=== PATIENT | male | born 1935 | race Caucasian/White ===

== ENCOUNTER → 2019-01-17 | Outpatient (CLI) | payer MEDICARE, OTHER ==
[~2019-01-17] MED LIST: ALLOPURINOL 30300 M1; AMLODIPINE BESYL5 MG; ASPIRIN EC81 M1; AVODART0.5 MG; CARDURA XL4 MG; COLACE100 MG; FISH OIL 1,0001 EAC8; LIPITOR40 MG; MIRALAX255 GM; NAPROSYN500 MG; NORCO 5-325 TA1 EACH; OMEPRAZOLE 20 M20 MG; PYRIDIUM200 MG; TAMSULOSIN HCL0.4 MG; VITAMIN D10000 UNIT
== END ==
LOC: M.RAD 14:05
DX: M16.11 Unilateral primary osteoarthritis, right hip (principal); M25.851 Other specified joint disorders, right hip; M47.816 Spondylosis without myelopathy or radiculopathy, lumbar region

== ENCOUNTER 2019-10-09 18:53 | Inpatient (IN) | payer MEDICARE, OTHER ==
[~2019-10-09] VITALS: Ht 180.3 cm; Wt 85.7 kg
[~2019-10-09 18:53] MED LIST changes: -ALLOPURINOL 30300 M1; +ALLOPURINOL 30300 M1 PO; -AMLODIPINE BESYL5 MG; -ASPIRIN EC81 M1; +ASPIRIN EC81 M1 PO; -COLACE100 MG; +COLACE100 MG PO; -LIPITOR40 MG; +LIPITOR40 MG PO; +NORVASC 2.5 MG2.5 M1 PO; +OMEPRAZOLE 20 M20 M1 PO; -OMEPRAZOLE 20 M20 MG
[2019-10-09 19:17] VITALS: BP 152/59
[2019-10-09] MEDS ORDERED: LISINOPRIL2.5 MG PO (19:26)
[2019-10-09] MEDS ORDERED: ISOSORBIDE DINI30 MG PO (19:27)
[2019-10-09] MEDS ORDERED: KAPSPARGO SPRIN25 MG PO (19:27)
[2019-10-09] MEDS ORDERED: NEURONTIN300 MG PO (19:28)
[2019-10-09 20:01] LABS: URINE BILIRUBIN NEGATIVE (Negative); URINE BLOOD NEGATIVE (Negative); URINE CLARITY CLEAR; URINE COLOR YELLOW; URINE GLUCOSE-RANDOM NEGATIVE (Negative); URINE KETONES NEGATIVE (Negative); URINE LEUKOCYTES-REFLEX NEGATIVE (Negative); URINE NITRITE-REFLEX NEGATIVE (Negative); URINE PROTEIN TRACE (Negative); URINE UROBILINOGEN 0.2 E.U./dl (0.2-1.0)
[2019-10-09 20:39] LABS: ABSOLUTE EOSINOPHILS 0.1 thou/uL (0.0-0.7); ABSOLUTE LYMPHOCYTES 0.8 thou/uL (0.8-5.3); ABSOLUTE MONOCYTES 0.6 thou/uL (0.0-1.2); ABSOLUTE NEUTROPHILS 4.8 thou/uL (1.6-8.1); BASOPHILS 0.4 %; EOSINOPHILS 2.2 %; HEMATOCRIT 32.9 % (42.0-52.0); HEMOGLOBIN 11.1 gm/dL (14.0-18.0); LYMPHOCYTES 12.6 %; MCH 30.3 pg (26.0-34.0); MCHC 33.9 g/dL (28.0-37.0); MCV 89.4 fL (80.0-100.0); MONOCYTES 10.1 %; MPV 8.7 fl. (7.2-11.1); NUCLEATED RBCS 0 /100WBC; PLATELET COUNT* 139 thou/uL (150-400); POLYS 74.7 %; RBC 3.68 mil/uL (4.50-6.00); RDW-CV 14.2 % (10.5-14.5); WBC 6.4 thou/uL (4.0-11.0)
[2019-10-09 20:48] LABS: CALCIUM 8.2 mg/dL (8.5-10.1); CREATININE 1.3 mg/dL (0.6-1.3); POTASSIUM 4.4 mmol/L (3.5-5.1)
[2019-10-09 20:49] LABS: INR 1.1; PROTIME 10.9 Seconds (9.20-11.50)
[2019-10-09 20:59] LABS: ALBUMIN 3.1 g/dL (3.4-5.0); TOTAL BILIRUBIN 0.3 mg/dL (<0.1-1.0); TOTAL PROTEIN 6.4 g/dL (6.4-8.2)
[2019-10-10 00:05] VITALS: BP 148/80
[2019-10-10 04:00] VITALS: BP 151/53
[2019-10-10 08:00] VITALS: BP 156/56
--- NOTE | 2019-10-10 08:24 | NUR ---
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 HE IS ABLE TO COMMUNIATE HIS NEEDS TO STAFF EFFECTIVELY. HE HAS REPORTED MINOR "PRESSURE, NOT REALLY PAIN" AND HAS DENIED THE NEED FOR ANY PAIN MEDICAION SINCE ADMISSION UP TILL NOW. PT AFIB ON ADMISSION WITH A CONTROLLED RATE. HE HAS BEEN NPO SINCE MIDNIGHT FOR A SURGICAL CONSULT TODAY.
--- NOTE | 2019-10-10 11:20 | NUR ---
Pt is A&O. Resides at home with . Normally active and independent. Pt uses a cane for mobility. No home o2. No hx of HH or SNF. Goal is home at ma, no needs anticipated. Following.
[2019-10-10 12:12] VITALS: BP 163/57
[2019-10-10 16:00] VITALS: BP 136/68
--- NOTE | 2019-10-10 16:28 | EKG ---
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: [place] : 1935 Requested By: Catalina Blank Order Number: [id number] MD: Héctor Carmona Measurements Intervals [place] Rate: 64 P: MS: QRS: -44 QRSD: 105 T: 69 QT: 421 QTc: 435 Interpretive Statements Atrial fibrillation Left anterior fascicular block Consider anterior infarct versus LAFB Nonspecific T abnormalities, lateral leads No previous ECG available for comparison Electronically Signed On 10-10-2019 16:27:14 CDT by Héctor Carmona [email or web address] <ELECTRONICALLY SIGNED> By: Héctor Carmona MD, FACC 10/10/19 1627 52 52 Héctor Carmona MD, [facility] /EPI
--- NOTE | 2019-10-10 16:34 | 2DMMODE ---
[place] [address] 2 D/M-MODE ECHOCARDIOGRAM Name: BELKYS DUARTE Room: [address] IN .R.#: [id number] Admission: 10/09/19 Attend Phys: Dayana Huff Discharge: Date of : 39 Date of Service: 10/10/19 1632 Report #: [id number] THIS REPORT FOR: cc: Brice Edwards John E. DO Holkins, John M. MD [facility] ~ APPROVED REPORT Study performed: 10/10/2019 13:34:03 EXAM: Comprehensive 2D, Doppler, and color-flow Echocardiogram Patient Location: In-Patient Room #: [facility] BSA: 2.07 HR: 84 bpm BP: 163/57 mmHg Rhythm: Atrial Fibrillation Other Information Study Quality: Good Indications Dyspnea 2D Dimensions IVSd: 11.65 (7-11mm) LVOT Diam: 20.26 (18-24mm) LVDd: 46.07 mm PWd: 11.90 (7-11mm) Ascending Ao: 26.57 (22-36mm) LVDs: 19.74 (25-40mm) Aortic Root: 25.25 mm Volumes Left Atrial Volume (Systole) LA ESV Index: 20.30 mL/m2 Aortic Valve AoV Peak Emmanuel.: 1.62 m/s AO Peak Gr.: 10.49 mmHg LVOT Max P.70 mmHg AO Mean Gr.: 5.45 mmHg LVOT Mean P.09 mmHg LVOT Max V: 1.29 m/s AO V2 VTI: 25.33 cm LVOT Mean V: 0.80 m/s ARETHA (VTI): 2.48 cm2 LVOT V1 VTI: 19.47 [place] [address] 2 D/M-MODE ECHOCARDIOGRAM Name: BELKYS DUARTE Room: [address] IN .R.#: [id number] Admission: 10/09/19 Attend Phys: Dayana Huff Discharge: Date of : 39 Date of Service: 10/10/19 1632 Report #: [id number] Mitral Valve E/A Ratio: 2.09 MV Decel. Time: 165.76 ms MV E Max Emmanuel.: 1.43 m/s MV PHT: 48.07 ms MVA (PHT): 4.58 cm2 TDI E/Lateral E': 10.21 E/Medial E': 11.92 Medial E' Emmanuel.: 0.12 m/s Lateral E' Emmanuel.: 0.14 m/s Pulmonary Valve PV Peak Emmanuel.: 0.97 m/s PV Peak Gr.: 3.79 mmHg Left Ventricle The left ventricle is normal size. There is normal LV segmental wall motion. There is normal left ventricular wall thickness. Left ventricular systolic function is normal. The left ventricular ejection fraction is within the normal range. LVEF is 55-60%. This study is not technically sufficient to allow evaluation of the LV diastolic function due to atrial fibrillation. Right Ventricle The right ventricle is normal size. The right ventricular systolic function is normal. Atria Left atrium is mildly dilated. The right atrium size is normal. Aortic Valve Mild aortic valve sclerosis. No aortic regurgitation is present. There is no aortic valvular stenosis. Mitral Valve The mitral valve is normal in structure. Mild mitral regurgitation. No evidence of mitral valve stenosis. Tricuspid Valve The tricuspid valve is normal in structure. There is no tricuspid valve regurgitation noted. Pulmonic Valve The pulmonary valve is normal in structure. Mild [place] [address] 2 D/M-MODE ECHOCARDIOGRAM Name: BELKYS DUARTE Room: [address] IN [facility]#: [id number] Admission: 10/09/19 Attend Phys: Dayana Huff Discharge: Date of : 39 Date of Service: 10/10/19 1632 Report #: [id number] Great Vessels The aortic root is normal in size. IVC is normal in size and collapses >50% with inspiration. Pericardium There is no pericardial effusion. <Conclusion> The left ventricle is normal size. There is normal left ventricular wall thickness. Left ventricular systolic function is normal. The left ventricular ejection fraction is within the normal range. LVEF is 55-60%. This study is not technically sufficient to allow evaluation of the LV diastolic function due to atrial fibrillation. The right ventricle is normal size. Left atrium is mildly dilated. The right atrium size is normal. Mild aortic valve sclerosis. No aortic regurgitation is present. There is no aortic valvular stenosis. The mitral valve is normal in structure. Mild mitral regurgitation. The tricuspid valve is normal in structure. IVC is normal in size and collapses >50% with inspiration. There is no pericardial effusion. There is normal LV segmental wall motion. <ELECTRONICALLY SIGNED> By: Brice Herring MD, FACC 10/10/19 163 31 163 Brice Herring MD, FACC /INF
--- NOTE | 2019-10-10 18:41 | NUR ---
PATINET RESTIN IN BED. VSS AND PATINET IN NO APPARENT SIGNS OF DISTRESS. HOURLY ROUNDING COMPLETED FOR PATIENT SAFETY.
[2019-10-10 20:00] VITALS: BP 109/51
[2019-10-11] VITALS: BP 119/44
[2019-10-11 04:31] VITALS: BP 96/41
[2019-10-11 04:41] LABS: CALCIUM 8.1 mg/dL (8.5-10.1); CREATININE 1.6 mg/dL (0.6-1.3); POTASSIUM 3.8 mmol/L (3.5-5.1)
[2019-10-11 07:25] VITALS: BP 119/50
--- NOTE | 2019-10-11 07:53 | NUR ---
Pt had temperature of 101.3 at midnight. 1g of tylenol was ordered and administered with resolution on pyrexia on reassessment. Pt is aox4, running a-fib on telemetry, respirations are even and unlabored on 5L NC.
[2019-10-11 11:22] VITALS: BP 112/50
--- NOTE | 2019-10-11 14:21 | NUR ---
ASSUMED PT CARE AT 0800, AOX4, UP WITH ASSIST, USES CANE. O2 SAT 90'S 5L NC. TRACING AFIB ON TELE. PT DENIES PAIN. PT ON 1500 FLUID RESTRICTION. I&O MONITOR . LOWER EXTREMITY EDEMA NOTED. HAS CARDIOLOGY AND SURGERY CONSULT. PT ON CLEAR LIQUID DIET. VSS, AM ASSESSMNET CHARTED, MEDS GIVEN PER OCT, HAD BATH TODAY, HOURLY ROUNDING, CALL LIGHT WITHIN REACH, WILL CONTINUE TO MONITOR.
[2019-10-11 14:47] LABS: ABSOLUTE EOSINOPHILS 0.1 thou/uL (0.0-0.7); BASOPHILS 0.4 %; EOSINOPHILS 1.2 %; HEMATOCRIT 32.2 % (42.0-52.0); HEMOGLOBIN 10.8 gm/dL (14.0-18.0); LYMPHOCYTES 14.2 %; MCH 30.1 pg (26.0-34.0); MCHC 33.6 g/dL (28.0-37.0); MCV 89.5 fL (80.0-100.0); MONOCYTES 13.9 %; MPV 8.8 fl. (7.2-11.1); NUCLEATED RBCS 0 /100WBC; PLATELET COUNT* 158 thou/uL (150-400); POLYS 70.3 %; RDW-CV 14.4 % (10.5-14.5); WBC 7.1 thou/uL (4.0-11.0)
[2019-10-11 16:13] VITALS: BP 118/42
[2019-10-11 20:00] VITALS: BP 119/49
[2019-10-12] VITALS (12 sets, daily range): BP systolic 110–146; BP diastolic 35–66
--- NOTE | 2019-10-12 03:23 | NUR ---
ASSUMED PT CARE AT APPROX 1930. PT IS AWAKE AND ORIENTED X4. PT IS TRACING AFIB-RATE CONTROLLED ON THE VULCAN CREWMEMBER. PT DENIES PAIN OF THIS TIME. PT IS ADVISED TO HAVE NOTHING BY MOUTH AFTER MIDNIGHT FOR TREVON/CARDIOVERSION IN AM. PT IS ABLE TO SLEEP MOST OF THE NIGHT. CALL LIGHT WITHIN REACH. HOURLY ROUNDING DONE FOR PT SAFETY
[2019-10-12 04:20] LABS: HEMATOCRIT 30.5 % (42.0-52.0); HEMOGLOBIN 10.6 gm/dL (14.0-18.0); MCH 30.5 pg (26.0-34.0); MCHC 34.8 g/dL (28.0-37.0); MCV 87.6 fL (80.0-100.0); MPV 8.3 fl. (7.2-11.1); RBC 3.48 mil/uL (4.50-6.00); RDW-CV 14.2 % (10.5-14.5); WBC 6.6 thou/uL (4.0-11.0)
[2019-10-12 04:38] LABS: ALBUMIN 2.8 g/dL (3.4-5.0); CREATININE 1.7 mg/dL (0.6-1.3); MAGNESIUM 1.7 mg/dL (1.8-2.4); PHOSPHORUS* 5.2 mg/dL (2.5-4.9); POTASSIUM 3.5 mmol/L (3.5-5.1)
--- NOTE | 2019-10-12 12:18 | NUR ---
ASSUMED PT CARE AT 0800, AOX4, UP WITH ASSIST, USES CANE. O2 SAT 90'S 3L NC. TRACING AFIB ON TELE. PT FOR TREVON/CARDIOVERT. PT NPO MIDNIGHT. PT DENIES PAIN. INSERTED NEW IV AT L FOREARM. VSS, AM ASSESSMENT CHARTED, MEDS GIVEN PER MAR, CALL LIGHT WITHIN REACH, WILL CONTINUE TO MONITOR.
--- NOTE | 2019-10-12 16:45 | EKG ---
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: : 1935 Requested By: Yuli Reina Order Number: [id number] Reading MD: Brice Herring Measurements Intervals [place] Rate: 64 P: DC: QRS: -44 QRSD: 114 T: 40 QT: 445 QTc: 459 Interpretive Statements Atrial fibrillation Left anterior fascicular block Compared to ECG 10/09/2019 19:53:05 left anterior hemiblock persists Myocardial infarct finding no longer present T-wave abnormality no longer present Electronically Signed On 10-12-2019 16:44:44 CDT by Brice Herring [email or web address] <ELECTRONICALLY SIGNED> By: Brice Herring MD, [facility] 10/12/19 1644 1019 1019 Brice Herring MD, [facility] /EPI
--- NOTE | 2019-10-12 18:19 | NUR ---
PT CONVERTED TO SINUS RHYTHM AFTER TREVON/CARDIOVERSION. PT FOR US THORACENTESIS. I&O, FLUID RESTRICT MAINTAIN. 3L NC. WILL CONTINUE TO MONITOR.
[2019-10-13 04:16] VITALS: BP 114/46
[2019-10-13 05:22] LABS: HEMATOCRIT 28.4 % (42.0-52.0); HEMOGLOBIN 9.8 gm/dL (14.0-18.0); MCH 30.4 pg (26.0-34.0); MCHC 34.5 g/dL (28.0-37.0); MCV 88.3 fL (80.0-100.0); MPV 8.7 fl. (7.2-11.1); RBC 3.22 mil/uL (4.50-6.00); RDW-CV 14.1 % (10.5-14.5); WBC 6.6 thou/uL (4.0-11.0)
[2019-10-13 05:43] LABS: ALBUMIN 2.5 g/dL (3.4-5.0); CREATININE 1.5 mg/dL (0.6-1.3); POTASSIUM 3.5 mmol/L (3.5-5.1); TOTAL BILIRUBIN 0.6 mg/dL (<0.1-1.0); TOTAL PROTEIN 5.7 g/dL (6.4-8.2)
[2019-10-13 08:00] VITALS: BP 134/50
--- NOTE | 2019-10-13 08:03 | NUR ---
PT IS ABLE TO COMMUNICATE HIS NEEDS TO STAFF EFFECTIVELY. HE HAS DENIED THE NEED FOR PAIN MEDICATION UP TO THIS TIME. PT HAS REMAINED IN SR SINCE CARDIOVERSION YESTERDAY, UP TO THIS TIME. HE HAS BEEN NPO SINCE MIDNIGHT FOR A POSSIBLE RIGHT SIDED THORACENTESIS LATER TODAY.
--- NOTE | 2019-10-13 09:50 | TEE ---
[place] [address] TRANSESOPHAGEAL ECHOCARDIOGRAM Name: BELKYS DUARTE Room: [address] IN [facility]#: [id number] Admission: 10/09/19 Attend Phys: Dayana Huff Discharge: Date of : 39 Date of Service: 10/13/19 0948 Report #: [id number] THIS REPORT FOR: cc: Brice Edwards John E. DO Liston, Michael J. MD [facility] ~ APPROVED REPORT Study performed: 10/12/2019 11:36:23 EXAM: Transesophageal Echocardiogram Patient Location: In-Patient Room #: [facility] Status: routine BSA: 2.06 HR: 75 bpm BP: 111/42 mmHg Rhythm: Atrial Fibrillation Other Information Study Quality: Good Indications Atrial Fibrillation Echo Enhancing Agent Indication: Rule out Shunt Agent(s) / Amount(s) Used: Agitated Saline 10 cc Procedure After obtaining informed consent, patient underwent transesophageal echo in the [employer]. Type of Sedation : Conscious Sedation Sedation was administered by Sherie Guillory RN. Sedation start time: 1245 Case end Time: 1303 Sedation was achieved intravenously with: Versed (3) Fentanyl (75) Transesophageal probe was inserted and advanced into esophagus without difficulty by Héctor Carmona MD, FACC. Echo enhancement indication: R/O Septal defect. Echo enhancement agent administered: Agitated Saline The TREVON was performed without complications. Synchronized Cardioversion acheived with 300 Joules after 1 attempt([place] [address] TRANSESOPHAGEAL ECHOCARDIOGRAM Name: BELKYS DUARTE Room: [address] IN .R.#: [id number] Admission: 10/09/19 Attend Phys: Dayana Huff Discharge: Date of : 39 Date of Service: 10/13/19 0948 Report #: [id number] Rhythm following Synchronized Cardioversion: Normal Sinus Rhythm Throughout the procedure, the blood pressure, pulse oximetry, cardiac rhythm, and rate were monitored. The patient tolerated the procedure without adverse effects. Recovery from conscious sedation was uneventful and vital signs were stable. Left Ventricle The left ventricle is normal size. There is normal LV segmental wall motion. There is normal left ventricular wall thickness. Left ventricular systolic function is normal. LVEF is 60-65%. Right Ventricle The right ventricle is normal size. The right ventricular systolic function is normal. Atria The left atrium size is normal. No thrombus is visualized in the left atrium or appendage. The interatrial septum is intact with no evidence for an atrial septal defect. The right atrium size is normal. Aortic Valve The aortic valve is normal in structure. Trace aortic regurgitation. There is no aortic valvular stenosis. Mitral Valve The mitral valve is normal in structure. Mild mitral regurgitation. No evidence of mitral valve stenosis. Tricuspid Valve The tricuspid valve is normal in structure. Mild tricuspid regurgitation. Pulmonic Valve The pulmonary valve is normal in structure. There is no pulmonic valvular regurgitation. Great Vessels The aortic root is normal in size. Pericardium There is no pericardial effusion. <Conclusion> The left [place] [address] TRANSESOPHAGEAL ECHOCARDIOGRAM Name: BELKYS DUARTE Room: [address]#: [id number] Admission: 10/09/19 Attend Phys: Dayana Huff Discharge: Date of : 39 Date of Service: 10/13/19947 Report #: [id number] There is normal left ventricular wall thickness. Left ventricular systolic function is normal. LVEF is 60-65%. The interatrial septum is intact with no evidence for an atrial septal defect. The left atrium size is normal. No thrombus is visualized in the left atrium or appendage. <ELECTRONICALLY SIGNED> By: Héctor Carmona MD, FACC 10/13/1946 7 7 Héctor Carmona MD, FACC /INF
[2019-10-13 11:32] LABS: BF RBC 3410 /mm3; TOTAL CELL COUNT 761 /mm3
[2019-10-13 11:38] LABS: TOTAL VOLUME 350 ml
[2019-10-13 11:39] LABS: CLARITY CLOUDY
[2019-10-13 11:56] VITALS: BP 137/44
[2019-10-13 12:41] LABS: BF LYMPHOCYTES 39 %; BF MONOCYTES 37 %; BF POLYS 24 %; BF TISSUE 7 /100 WBC
[2019-10-13 13:02] LABS: SOURCE PLEURAL FLUID
--- NOTE | 2019-10-13 16:38 | EKG ---
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1935 Requested By: Yuli Reina Order Number: [id number] Reading MD: Brice Herring Measurements Intervals [place] Rate: 63 P: 53 [place]: 208 QRS: -48 QRSD: 114 T: 36 QT: 466 QTc: 478 Interpretive Statements Sinus rhythm Left anterior fascicular block Abnormal R-wave progression, late transition Borderline prolonged QT interval Compared to ECG 10/12/2019 10:19:26 Atrial fibrillation no longer present Electronically Signed On 10-13-2019 16:37:00 CDT by Brice Herring [email or web address] <ELECTRONICALLY SIGNED> By: Brice Herring MD, FACC 10/13/19 1637 0837 0837 Brice Herring MD, FAC /EPI
--- NOTE | 2019-10-13 18:05 | NUR ---
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
[2019-10-13 20:06] VITALS: BP 150/42
[2019-10-13 23:40] VITALS: BP 128/38
[2019-10-14 03:55] VITALS: BP 127/51
--- NOTE | 2019-10-14 05:39 | NUR ---
PT IS ABLE TO COMMUNICATE HIS NEEDS TO STAFF EFFECTIVELY. HE HAS DENIED THE NEED FOR PAIN MEDICATION UP TO THIS TIME. 1500ML FLUID RESTRICTION MAINTAINED. TUBIGRIPS+CLIFF BANDAGE PLACED ON BILATERAL CALFS AT HS; PT ALSO ELEVATED LEGS; TOLERATED WELL.
[2019-10-14 08:00] VITALS: BP 153/57
[2019-10-14 11:52] LABS: CALCIUM 8.5 mg/dL (8.5-10.1); CREATININE 1.5 mg/dL (0.6-1.3); MAGNESIUM 2.1 mg/dL (1.8-2.4); POTASSIUM 3.4 mmol/L (3.5-5.1)
--- NOTE | 2019-10-14 13:05 | NUR ---
Per , plan dc to home tomorrow with HH, Pt/ in agreement. H&P, facesheet and HH orders need to be faxed to [facility] at [phone]. [facility] aware of the referral p:[phone]
[2019-10-14 14:04] VITALS: BP 136/43
--- NOTE | 2019-10-14 14:52 | NUR ---
RE: CHF Medication Teaching Saw pt today at bedside. All CHF medications were discussed including how/when to take, what the medications do, posslible side effects, etc. The pt indicates no further questions at this time. Pharmacy is available if there are further needs, thank you.
[2019-10-14 17:19] VITALS: BP 122/41
--- NOTE | 2019-10-14 17:31 | NUR ---
ASSUMED PT CARE AT 0800, AOX4, UP SBA, USES WALKER. O2 SAT 90'S RA. TRACING SR ON TELE. PT DENIES PAIN. ON FLUID RESTRICTION, COMPRESSION SOCKS ON. VSS, AM ASSESSMENT CHARTED, MEDS GIVEN PER MAR, CALL LIGHT WITHIN REACH, WILL CONTINUE TO MONITOR.
[2019-10-14 20:20] VITALS: BP 139/46
[2019-10-15 00:06] VITALS: BP 110/40
[2019-10-15 04:04] VITALS: BP 128/44
[2019-10-15 05:00] LABS: CALCIUM 8.2 mg/dL (8.5-10.1); CREATININE 1.5 mg/dL (0.6-1.3); MAGNESIUM 1.9 mg/dL (1.8-2.4); POTASSIUM 3.5 mmol/L (3.5-5.1)
--- NOTE | 2019-10-15 07:50 | NUR ---
PT CARE ASSUMED AT 1930. SAT DROPPED TO 86% IN RA, CONNECTED TO 2L NC. DENIES PAIN. ALERT AND ORIENTED X4. SPOUSE AT BEDSIDE. CALL LIGHT WITHIN REACH AND BED IN LOW POSITION. HOURLY ROUNDING DONE FOR PT SAFETY.
[2019-10-15 08:00] VITALS: BP 154/41
[2019-10-15] MEDS ORDERED: PACERONE 200 M200 M1 PO (09:05)
[2019-10-15] MEDS ORDERED: LASIX 40 MG TAB40 M1 PO (09:05)
[2019-10-15] MEDS ORDERED: ISOSORBIDE DINI30 MG PO (09:05)
[2019-10-15] MEDS ORDERED: ELIQUIS5 MG PO (09:05)
[2019-10-15 09:39] VITALS: BP 154/41
--- NOTE | 2019-10-15 10:25 | NUR ---
ASSUMED PT CARE AT 0800, AOX4, UP AD SINDY, WITH WALKER. O2 SAT 90'S RA. TRACING SB ON TELE. PT DENIES PAIN. PT FOR DISCHARGE. VSS, AM ASSESSMENT CHARTED, MEDS GIVEN PER MAR. CALL LIGHT WITHIN REACH, WILL CONTINUE TO MONITOR.
--- NOTE | 2019-10-15 14:26 | NUR ---
DISCHARGE PLAN DISCHARGED WITH THE PT. IV, TELE REMOVED. REMINDED TO FOLLOW UP WITH CARDIOLOGY IN 1 WEEK. PT HAS OWN CARDIOLOGY. ALL BELONGINHG PACKED AND CHECKED. LEFT THE UNIT AT 1336.
--- NOTE | 2019-10-17 13:08 | PATH ---
[address] [address] PATHOLOGY RPT PROCEDURE Name: BELKYS DUARTE Room: [address]#: [id number] Admission: 10/09/19 Date of : 39 Discharge: 10/15/19 Report #: [id number] Path Case #: [id number] Note [facility] Accession Number: [id number] TESTS RESULT FLAG UNITS REF RANGE LAB Clinician Provided Cytology Information No. of containers..01 Other (Miscellaneous) Source: RIGHT PLEURAL FLUID DIAGNOSIS: 02 RIGHT PLEURAL FLUID NEGATIVE FOR MALIGNANT CELLS. REACTIVE MESOTHELIAL CELLS ARE PRESENT. THIS INTERPRETATION INCLUDES EVALUATION OF A CELL BLOCK. Signed out by: 02 John Varela MD, Pathologist NPI- [id number] Performed by: 01 Lula Beckwith, Supervisor [employer] [facility]) Gross description: 01 25ML, YELLOW, 1 TP 1 CB /LCS 10/14/2019 1841 Local FLAG LEGEND: L-Low Normal,H-High Normal,LL-Alert Low,HH-Alert High <-Panic Low,>-Panic High,A-Abnormal,AA-Critical Abnormal Performed at: [address] [place] [address] Malick Benitez MD, [address] [place] [phone] Jesu Cox MD, Specimen Comment: A courtesy copy of this report has been sent to [phone], [phone] Specimen Comment: [phone], Specimen Comment: Report sent to ,DR LUCAS / DR PASTRANA Performed at: [address], [place], [place] [id number] MD Malick Benitez MD Phone: [phone]
== END 2019-10-15 13:36 | disposition home health service (06) | DRG 291 ==
LOC: M.ERS 18:53 → M.TBA-ER 22:49 → M.2W 22:49
PROVIDERS: Family Medicine; Internal Medicine; Nurse Practitioner Family; Registered Nurse; ADMIT Internal Medicine
PROC: B24BZZ4 Ultrasonography of Heart with Aorta, Transesophageal (ICD-10-PCS; principal; 2019-10-12)
PROC: 0W993ZZ Drainage of Right Pleural Cavity, Percutaneous Approach (ICD-10-PCS; 2019-10-13)
DX: I13.0 Hypertensive heart and chronic kidney disease with heart failure and stage 1 through stage 4 chronic kidney disease, or unspecified chronic kidney disease (principal); I50.33 Acute on chronic diastolic (congestive) heart failure; N17.0 Acute kidney failure with tubular necrosis; J98.11 Atelectasis; E44.0 Moderate protein-calorie malnutrition; K76.6 Portal hypertension; K80.10 Calculus of gallbladder with chronic cholecystitis without obstruction; I48.0 Paroxysmal atrial fibrillation; N18.3 Chronic kidney disease, stage 3 (moderate); M10.9 Gout, unspecified; E78.00 Pure hypercholesterolemia, unspecified; E78.5 Hyperlipidemia, unspecified; I25.10 Atherosclerotic heart disease of native coronary artery without angina pectoris; Z68.26 Body mass index [BMI] 26.0-26.9, adult; Z95.5 Presence of coronary angioplasty implant and graft; Z79.82 Long term (current) use of aspirin; Z79.899 Other long term (current) drug therapy; Z82.49 Family history of ischemic heart disease and other diseases of the circulatory system

== ENCOUNTER 2021-09-15 01:04 | Observation (INO) | payer MEDICARE, OTHER ==
[~2021-09-15] VITALS: Ht 180.3 cm; Wt 78.5 kg
[2021-09-15] VITALS (8 sets, daily range): BP systolic 149–175; BP diastolic 49–69
[~2021-09-15 01:04] MED LIST changes: +ELIQUIS5 MG PO; +ISOSORBIDE DINI30 MG PO; +KAPSPARGO SPRIN25 MG PO; +LASIX 40 MG TAB40 M1 PO; +LISINOPRIL2.5 MG PO; +NEURONTIN300 MG PO; +PACERONE 200 M200 M1 PO
[2021-09-15 01:36] LABS: ABSOLUTE EOSINOPHILS 0.3 thou/uL (0.0-0.7); ABSOLUTE LYMPHOCYTES 1.3 thou/uL (0.8-5.3); ABSOLUTE MONOCYTES 0.5 thou/uL (0.0-1.2); BASOPHILS 0.2 %; EOSINOPHILS 3.8 %; HEMATOCRIT 39.1 % (42.0-52.0); LYMPHOCYTES 18.3 %; MCH 29.6 pg (26.0-34.0); MCHC 33.1 g/dL (28.0-37.0); MCV 89.4 fL (80.0-100.0); MONOCYTES 7.7 %; MPV 8.5 fl. (7.2-11.1); NUCLEATED RBCS 0 /100WBC; PLATELET COUNT* 142 thou/uL (150-400); RBC 4.38 mil/uL (4.50-6.00); RDW-CV 14.3 % (10.5-14.5); WBC 7.2 thou/uL (4.0-11.0)
[2021-09-15] MEDS ORDERED: FUROSEMIDE 20 M20 MG PO (01:36)
[2021-09-15] MEDS ORDERED: ISOSORBIDE MON120 MG PO (01:38)
[2021-09-15 01:40] LABS: CALCIUM 8.6 mg/dL (8.5-10.1); CREATININE 1.2 mg/dL (0.6-1.3); POTASSIUM 3.8 mmol/L (3.5-5.1)
[2021-09-15 01:42] LABS: APTT 23.3 Seconds (25.0-31.3); INR 1.1; PROTIME 10.9 Seconds (9.20-11.50)
[2021-09-15 01:50] LABS: ALBUMIN 3.4 g/dL (3.4-5.0); TOTAL BILIRUBIN 0.3 mg/dL (<0.1-1.0); TOTAL PROTEIN 6.9 g/dL (6.4-8.2)
--- NOTE | 2021-09-15 11:58 | EKG ---
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: BXIONF : 1935 Requested By: Mulu Camarena Order Number: [id number] MD: Brice Herring Measurements Intervals [place] Rate: 81 P: -44 CT: 176 QRS: -52 QRSD: 106 T: 75 QT: 399 QTc: 464 Interpretive Statements Sinus rhythm Ventricular premature complex Left anterior fascicular block Abnormal R-wave progression, late transition Probable LVH with secondary repol abnrm Compared to ECG 10/13/2019 08:37:27 Ventricular premature complex(es) now present Electronically Signed On 09-15-2021 11:58:14 PROGRAM REP by Brice Herring [email or web address] <ELECTRONICALLY SIGNED> By: Brice Herring MD, [facility] 09/15/21 1158 6 6 Brice Herring MD, [facility] /EPI
[2021-09-16 00:32] VITALS: BP 136/53
[2021-09-16 04:34] VITALS: BP 111/57
[2021-09-16 05:16] LABS: HEMATOCRIT 35.1 % (42.0-52.0); HEMOGLOBIN 11.7 gm/dL (14.0-18.0); MCH 29.5 pg (26.0-34.0); MCHC 33.2 g/dL (28.0-37.0); MCV 88.9 fL (80.0-100.0); MPV 9.2 fl. (7.2-11.1); RBC 3.95 mil/uL (4.50-6.00); RDW-CV 14.1 % (10.5-14.5); WBC 6.6 thou/uL (4.0-11.0)
[2021-09-16 05:40] LABS: CALCIUM 8.5 mg/dL (8.5-10.1); CREATININE 1.5 mg/dL (0.6-1.3); POTASSIUM 4.2 mmol/L (3.5-5.1)
[2021-09-16] MEDS ORDERED: IMDUR 60 MG TAB60 M1 PO (09:11)
[2021-09-16] MEDS ORDERED: RANEXA500 MG PO (09:11)
[2021-09-16] MEDS ORDERED: NITROGLYCERIN0.4 MG SUBLING (09:11)
[2021-09-16 11:48] VITALS: BP 150/57
--- NOTE | 2021-09-16 12:24 | 2DMMODE ---
[place] [address] 2 D/M-MODE ECHOCARDIOGRAM Name: BELKYS DUARTE Room: [address] Ashu#: [id number] Admission: 09/15/21 Attend Phys: Macey Aldridge Discharge: Date of : 39 Date of Service: 09/16/21 1224 Report #: [id number] THIS REPORT FOR: cc: Brice Edwards John E. DO Blick, David R. MD [facility] ~ APPROVED REPORT Study performed: 09/16/2021 09:53:22 EXAM: Comprehensive 2D, Doppler, and color-flow Echocardiogram Patient Location: In-Patient Room #: [facility] Status: routine BSA: 1.98 HR: 63 bpm BP: 111/57 mmHg Rhythm: NSR Other Information Study Quality: Good Indications Acute MT 2D Dimensions IVSd: 11.45 (7-11mm) LVOT Diam: 20.89 (18-24mm) LVDd: 36.69 mm PWd: 9.42 (7-11mm) Ascending Ao: 26.00 (22-36mm) LVDs: 25.20 (25-40mm) Aortic Root: 31.98 mm Volumes Left Atrial Volume (Systole) LA ESV Index: 32.80 mL/m2 Aortic Valve AoV Peak Emmanuel.: 1.45 m/s AO Peak Gr.: 8.46 mmHg LVOT Max P.46 mmHg AO Mean Gr.: 4.15 mmHg LVOT Mean P.76 mmHg LVOT Max V: 1.27 m/s AO V2 VTI: 29.47 cm LVOT Mean V: 0.75 m/s ARETHA (VTI): 3.10 cm2 LVOT V1 VTI: 26.69 cm AI Ritchie: 2.38 m/s2 [place] [address] 2 D/M-MODE ECHOCARDIOGRAM Name: BELKYS DUARTE Room: [address] MKrishna#: [id number] Admission: 09/15/21 Attend Phys: Macey Aldridge Discharge: Date of : 39 Date of Service: 09/16/21 1224 Report #: [id number] AI PHT: 465.25 ms Mitral Valve E/A Ratio: 0.78 MV Decel. Time: 296.29 ms MV E Max Emmanuel.: 0.85 m/s MV PHT: 85.92 ms MVA (PHT): 2.56 cm2 TDI E/Lateral E': 7.73 E/Medial E': 9.44 Medial E' Emmanuel.: 0.09 m/s Lateral E' Emmanuel.: 0.11 m/s Pulmonary Valve PV Peak Emmanuel.: 0.95 m/s PV Peak Gr.: 3.61 mmHg Left Ventricle The left ventricle is normal size. There is normal LV segmental wall motion. There is normal left ventricular wall thickness. Left ventricular systolic function is normal. The left ventricular ejection fraction is within the normal range. LVEF is 55-60%. Grade I - abnormal relaxation pattern. Right Ventricle The right ventricle is normal size. The right ventricular systolic function is normal. Atria Left atrium is mildly dilated. The right atrium size is normal. Aortic Valve Mild aortic valve sclerosis. Mild aortic regurgitation. There is no aortic valvular stenosis. Mitral Valve The mitral valve is normal in structure. There is no mitral valve regurgitation noted. No evidence of mitral valve stenosis. Tricuspid Valve The tricuspid valve is normal in structure. Unable to assess PA pressure. Trace tricuspid regurgitation. Pulmonic Valve Pulmonic valve is not well visualized[place] [address] 2 D/M-MODE ECHOCARDIOGRAM Name: BELKYS DUARTE Room: [address]#: [id number] Admission: 09/15/21 Attend Phys: Macey Aldridge Discharge: Date of : 39 Date of Service: 09/16/21 1224 Report #: [id number] regurgitation. Great Vessels The aortic root is normal in size. IVC is normal in size and collapses >50% with inspiration. Pericardium There is no pericardial effusion. <Conclusion> LVEF is 55-60%. Mild aortic valve sclerosis. Mild aortic regurgitation Left atrium is mildly dilated. <ELECTRONICALLY SIGNED> By: Rigoberto Carpio MD, FACC 09/16/21 1224 23 122 Rigoberto Carpio MD, FACC /INF
[2021-09-16 13:54] VITALS: BP 150/57
== END 2021-09-16 14:47 | disposition home or self-care (01) ==
LOC: M.ERS 01:04 → M.2W 02:36 → M.TBA-ER 02:36 → M.2W 02:36
PROVIDERS: Personal Emergency Response Attendant; ADMIT Internal Medicine; ATTEND Internal Medicine
DX: I21.4 Non-ST elevation (NSTEMI) myocardial infarction (principal); I48.0 Paroxysmal atrial fibrillation; Z20.822 Contact with and (suspected) exposure to COVID-19; E78.00 Pure hypercholesterolemia, unspecified; I11.0 Hypertensive heart disease with heart failure; I50.9 Heart failure, unspecified; I25.10 Atherosclerotic heart disease of native coronary artery without angina pectoris; Z98.890 Other specified postprocedural states; Z79.899 Other long term (current) drug therapy

== ENCOUNTER 2021-09-23 18:04 | Emergency (ER) | payer MEDICARE, OTHER ==
[~2021-09-23] VITALS: Ht 180.3 cm; Wt 77.1 kg
[~2021-09-23 18:04] MED LIST changes: +FUROSEMIDE 20 M20 MG PO; +IMDUR 60 MG TAB60 M1 PO; +ISOSORBIDE MON120 MG PO; +NITROGLYCERIN0.4 MG SUBLING; +RANEXA500 MG PO
[2021-09-23 19:45] LABS: ABSOLUTE EOSINOPHILS 0.3 thou/uL (0.0-0.7); ABSOLUTE LYMPHOCYTES 1.6 thou/uL (0.8-5.3); ABSOLUTE MONOCYTES 0.8 thou/uL (0.0-1.2); ABSOLUTE NEUTROPHILS 5.3 thou/uL (1.6-8.1); BASOPHILS 0.5 %; EOSINOPHILS 3.2 %; HEMATOCRIT 39.8 % (42.0-52.0); LYMPHOCYTES 20.1 %; MCH 29.5 pg (26.0-34.0); MCHC 32.8 g/dL (28.0-37.0); MCV 90.1 fL (80.0-100.0); MPV 9.1 fl. (7.2-11.1); NUCLEATED RBCS 0 /100WBC; PLATELET COUNT* 153 thou/uL (150-400); POLYS 66.2 %; RBC 4.42 mil/uL (4.50-6.00); RDW-CV 14.3 % (10.5-14.5); WBC 8.1 thou/uL (4.0-11.0)
[2021-09-23 20:04] LABS: CALCIUM 8.6 mg/dL (8.5-10.1); CREATININE 1.6 mg/dL (0.6-1.3)
[2021-09-23 20:14] LABS: ALBUMIN 3.7 g/dL (3.4-5.0); TOTAL BILIRUBIN 0.4 mg/dL (<0.1-1.0); TOTAL PROTEIN 7.1 g/dL (6.4-8.2)
[2021-09-23 20:25] LABS: URINE BILIRUBIN NEGATIVE (Negative); URINE BLOOD NEGATIVE (Negative); URINE CLARITY CLEAR; URINE COLOR YELLOW; URINE GLUCOSE-RANDOM NEGATIVE (Negative); URINE KETONES NEGATIVE (Negative); URINE LEUKOCYTES-REFLEX NEGATIVE (Negative); URINE NITRITE-REFLEX NEGATIVE (Negative); URINE PROTEIN NEGATIVE (Negative); URINE SPECIFIC GRAVITY <= 1.005 (1.005-1.030); URINE UROBILINOGEN 0.2 E.U./dl (0.2-1.0)
[2021-09-23 21:00] VITALS: BP 175/58
--- NOTE | 2021-09-24 14:50 | EKG ---
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1935 Requested By: Miki Herring Order Number: [id number] MD: Rigoberto Carpio Measurements Intervals [place] Rate: 71 P: -6 CA: 193 QRS: -51 QRSD: 108 T: 73 QT: 410 QTc: 446 Interpretive Statements Sinus rhythm Left anterior fascicular block Abnormal R-wave progression, late transition Minimal ST depression, lateral leads Compared to ECG 09/15/2021 01:07:48 Ventricular premature complex(es) no longer present Electronically Signed On 09-24-2021 14:50:08 WOOD DIE [employer]KER by Rigoberto Carpio [email or web address] <ELECTRONICALLY SIGNED> By: Rigoberto Carpio MD, FAC 09/24/21 1450 18 18 Rigoberto Carpio MD, FAC /EPI
== END 2021-09-23 21:00 | disposition home or self-care (01) ==
LOC: M.ERS 18:04
PROVIDERS: Physician Assistant Medical
DX: I10 Essential (primary) hypertension (principal); E78.00 Pure hypercholesterolemia, unspecified; M10.9 Gout, unspecified